=== PATIENT | female | born 1980 | race Caucasian/White ===

== ENCOUNTER → 2023-10-31 10:25 | Outpatient (REF) | payer BC, SELFPAY | LOC: HWWDC 10:25 | PROVIDERS: ATTENDING PHYSICIAN Advanced Practice Midwife; FAMILY PHYSICIAN Emergency Medicine | DX: Z12.31 Encounter for screening mammogram for malignant neoplasm of breast (principal) | CPT/HCPCS: 77063; 77067 ==

== ENCOUNTER → 2024-02-23 19:55 | Outpatient (REF) | payer BC, SELFPAY | LOC: MRI 19:55 | PROVIDERS: ATTENDING PHYSICIAN Otolaryngology; FAMILY PHYSICIAN Emergency Medicine | DX: R42 Dizziness and giddiness (principal); H93.13 Tinnitus, bilateral | CPT/HCPCS: 70553; A9575 ==

== ENCOUNTER → 2024-03-28 06:21 | Day surgery (SDC) | payer BC, SELFPAY | LOC: GI 06:21 | PROVIDERS: ATTENDING PHYSICIAN Internal Medicine; FAMILY PHYSICIAN Emergency Medicine | DX: Z12.11 Encounter for screening for malignant neoplasm of colon (principal); Z83.719 Family history of colon polyps, unspecified; K64.8 Other hemorrhoids; K62.89 Other specified diseases of anus and rectum | CPT/HCPCS: G0105 ==

== ENCOUNTER → 2025-01-09 11:26 | Outpatient (REF) | payer BC, SELFPAY | LOC: WDC 11:26 | PROVIDERS: ATTENDING PHYSICIAN Obstetrics & Gynecology; FAMILY PHYSICIAN Emergency Medicine | DX: Z12.31 Encounter for screening mammogram for malignant neoplasm of breast (principal) | CPT/HCPCS: 77063; 77067 ==

== ENCOUNTER → 2025-05-04 13:32 | Outpatient (REF) | payer BC, SELFPAY | LOC: PAVMRI 13:32 | PROVIDERS: ATTENDING PHYSICIAN Physician Assistant Surgical | DX: M54.12 Radiculopathy, cervical region (principal); M54.2 Cervicalgia | CPT/HCPCS: 72141 ==

== ENCOUNTER → 2025-06-09 13:04 | Outpatient (REF) | payer BC, SELFPAY | LOC: WDC 13:04 | PROVIDERS: ATTENDING PHYSICIAN Emergency Medicine | DX: R92.333 Mammographic heterogeneous density, bilateral breasts (principal) | CPT/HCPCS: 76641 ==